=== PATIENT | female | born 1980 | race African-American/Black ===

== ENCOUNTER 2023-11-30 19:13 | Emergency (ER) | payer MEDICAID ==
[~2023-11-30] VITALS: Ht 162.6 cm; Wt 124.7 kg
[2023-11-30 20:10] VITALS: BP 148/96; PULSE 98; RESP 24; TEMP 97.2; O2SAT 98
[2023-11-30 21:26] VITALS: O2SAT 98
[2023-11-30 22:19] LABS: APPEARANCE,URINE CLEAR (CLEAR); BILIRUBIN,URINE 1+ (NEGATIVE); BLOOD, URINE NEGATIVE (NEGATIVE); COLOR,URINE YELLOW (YELLOW); LEUKOCYTE ESTERASE ,URINE NEGATIVE (NEGATIVE); NITRITE, URINE NEGATIVE (NEGATIVE); PH,URINE 5.5 (5.0-9.0); PROTEIN,URINE 2+ (NEGATIVE); UGLUCOSE NEGATIVE (NEGATIVE); UROBILINOGEN,URINE 0.2 EU/dL (0.2 - 1)
[2023-11-30 22:22] LABS: ICTOTEST POSITIVE (NEGATIVE)
[2023-11-30] MEDS: NACL 0.9% 1,000 ML IV ONE (22:32)
[2023-11-30] MEDS ORDERED: ONDANSETRON 4 MG/2 ML VIAL ONE (22:45)
[2023-11-30] MEDS ORDERED: IBUP-2213 PO (22:45)
[2023-11-30] MEDS ORDERED: KETOROLAC 30 MG/ML VIAL ONE (22:45)
[2023-11-30] MEDS ORDERED: ONDA8TAB87 PO (22:45)
[2023-11-30] MEDS ORDERED: LOPE-289 PO (22:45)
[2023-11-30] MEDS: ONDANSETRON 4 MG/2 ML VIAL IVP ONE (22:46)
[2023-11-30] MEDS: KETOROLAC 30 MG/ML VIAL IVP ONE (22:47)
[2023-11-30 23:27] VITALS: BP 127/78; PULSE 91; RESP 16; TEMP 98.1; O2SAT 99
== END 2023-11-30 23:27 | disposition home or self-care (01) ==
LOC: MED 19:13
DX: R10.9 Unspecified abdominal pain (principal); R05.9 Cough, unspecified; R11.2 Nausea with vomiting, unspecified; R19.7 Diarrhea, unspecified; R30.0 Dysuria; M79.18 Myalgia, other site; R50.9 Fever, unspecified
CPT/HCPCS: 81003; 81025; 96361; 96374; 96375; 99284; J1885; J2405